=== PATIENT | female | born 1965 | race Two or more races ===

== ENCOUNTER 2024-01-19 10:01 | Outpatient (REF) | payer OTHER, SELFPAY | END 2024-01-19 10:02 | disposition home or self-care (01) | LOC: HO.HOSX 10:01 | DX: M79.641 Pain in right hand (principal) | CPT/HCPCS: 73110 ==

== ENCOUNTER 2024-01-19 14:04 | Outpatient (AMB) | payer OTHER, SELFPAY ==
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
== END 2024-01-19 14:45 | disposition home or self-care (01) ==
DX: M77.8 Other enthesopathies, not elsewhere classified (principal); M67.431 Ganglion, right wrist; R20.0 Anesthesia of skin; R20.2 Paresthesia of skin
CPT/HCPCS: 99203

== ENCOUNTER → 2024-01-19 14:07 | Outpatient (BNV) | payer OTHER, SELFPAY | PROVIDERS: Visit Provider Radiology Diagnostic Radiology | DX: M79.641 Pain in right hand (principal) | CPT/HCPCS: 73110 ==

== ENCOUNTER 2024-02-11 14:11 | Outpatient (REF) | payer OTHER, SELFPAY ==
--- NOTE | 2024-02-11 14:19 | EMG_ITS ---
Chief complaint: Right hand pain Reason for referral: Evaluate for Carpal Tunnel Syndrome Referred by: Ivan GLYNN Procedure done: Right upper extremity NCS/EMG Precautions and/or limitations: None The limb temperature was monitored continuously and remained between 32-36 degrees C during the performance of the NCS. Nerve Conduction Studies Anti Sensory Summary Table ?Stim Site NR Onset (ms) Norm Onset (ms) Peak (ms) Norm Peak (ms) O-P Amp (?V) Norm O-P Amp Site1 Site2 Delta-0 (ms) Dist (cm) Ck (m/s) Norm Ck (m/s) Right Median Anti Sensory (2nd Digit) Wrist ? 4.3 5.4 <3.6 12.2 >10 Wrist 2nd Digit 4.3 14.0 33 Right Radial Anti Sensory (Thumb) Forearm ? 1.5 1.8 <3.1 29.5 Forearm Thumb 1.5 0.0 Right Ulnar Anti Sensory (5th Digit) Wrist ? 2.0 2.5 <3.7 26.1 >15.0 Wrist 5th Digit 2.0 14.0 70 Motor Summary Table ?Stim Site NR Onset (ms) Norm Onset (ms) O-P Amp (mV) Norm O-P Amp iAmp (mV) Amp (1st) (%) Site1 Site2 Delta-0 (ms) Dist (cm) Ck (m/s) Norm Ck (m/s) Right Median Motor (Abd Poll Brev) Wrist ? 5.2 <3.9 4.8 >4.5 6.1 100.0 Elbow Wrist 3.0 19.0 63 >45 Elbow ? 8.2 4.5 5.9 93.8 Right Ulnar Motor (Abd Dig Minimi) Wrist ? 2.5 <3.0 6.7 >5 8.0 100.0 B Elbow Wrist 3.0 18.5 62 >45 B Elbow ? 5.5 5.9 7.3 88.1 A Elbow B Elbow 1.2 10.0 83 >45 A Elbow ? 6.7 5.9 7.3 88.1 EMG ?Side Muscle Nerve Root Ins Act Fibs Psw Amp Dur Poly Recrt Int Pat Comment Right 1stDorInt Ulnar C8-T1 Nml Nml Nml Nml Nml 0 Nml Complete Right FlexCarRad Median C6-7 Nml Nml Nml Nml Nml 0 Nml Complete Right Biceps Musculocut C5-6 Nml Nml Nml Nml Nml 0 Nml Complete Right Triceps Radial C6-7-8 Nml Nml Nml Nml Nml 0 Nml Complete Right Deltoid Axillary C5-6 Nml Nml Nml Nml Nml 0 Nml Complete FINDINGS: Right median motor nerve showed prolonged distal latency, normal amplitude and normal conduction velocity. Right median sensory nerve showed prolonged peak latency. All other nerves tested were within normal. Concentric needle EMG was performed in selected muscles of the right upper extremity. Study did not reveal signs of electric abnormalities as shown in the table above. IMPRESSION: 1. This is an abnormal study. 2. There is electrodiagnostic evidence for right moderate-severe median neuropathy at the wrist, consistent with carpal tunnel syndrome. 3. There is no electrodiagnostic evidence for ulnar neuropathy, brachial plexopathy, or cervical radiculopathy. Thank you for your kind referral. Regine Wick MD, ATA Board Certified, [place] [employer] and [employer] (ABPMR) Board Certified, [place] Board [employer] Electro[employer]ostic [employer] (ABEM) [place] [id number] [facility]
== END 2024-02-11 14:12 | disposition home or self-care (01) ==
LOC: HO.NEURO 14:11
DX: R20.0 Anesthesia of skin (principal); R20.2 Paresthesia of skin
CPT/HCPCS: 95886; 95909

== ENCOUNTER → 2024-02-11 14:19 | Outpatient (BNV) | payer OTHER, SELFPAY | PROVIDERS: Visit Provider Physical Medicine & Rehabilitation | DX: G56.01 Carpal tunnel syndrome, right upper limb (principal) | CPT/HCPCS: 95886; 95909 ==

== ENCOUNTER 2024-03-15 11:15 | Outpatient (AMB) | payer OTHER, SELFPAY ==
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
== END 2024-03-15 12:00 | disposition home or self-care (01) ==
PROVIDERS: Visit Provider Orthopaedic Surgery
DX: G56.01 Carpal tunnel syndrome, right upper limb (principal); M67.431 Ganglion, right wrist
CPT/HCPCS: 99214

== ENCOUNTER → 2024-03-15 11:15 | Outpatient (BNVA) | payer OTHER, SELFPAY | PROVIDERS: Visit Provider Orthopaedic Surgery | DX: G56.01 Carpal tunnel syndrome, right upper limb (principal); M67.431 Ganglion, right wrist | CPT/HCPCS: 99212 ==

== ENCOUNTER 2024-05-22 08:14 | Day surgery (SDC) | payer OTHER, SELFPAY ==
[2024-05-22 09:18] VITALS: BP 132/77; PULSE 99; RESP 15; TEMP 36.6; O2SAT 99; BMI 28.0
--- NOTE | 2024-05-22 10:40 | MHC.SHP ---
Pre-Procedural Eval Section A - 24 Hr Update-Section A only Date of Service: 05/22/24 The patient is an INPATIENT: No Changes since office visit: No Cold of Flu in the past 2 weeks, No New Medical Problems, No Changes in Medication and No Patient answered all questions The patient has been examined within 24 hours of the surgical procedure. The History & Physical has been completed within 30 days and I have reviewed it.: Yes Section B - Complete if H&P > 30 days Chief Complaint: Carpal tunnel syndrome, right upper limb Allergies: Allergies Allergy/AdvReac Type Severity Reaction Status Date / Time No Known Allergies Allergy Verified 01/19/24 14:16 Plan Diagnosis/Plan: Unchanged I have reviewed the history and physical and performed a pertinent physical examination on my patient. No changes have occurred unless specified. Time Spent With Patient Time: Total time managing care of this patient today ____ minutes.
--- NOTE | 2024-05-22 10:40 | W.PM.OPN ---
Operative Note Operative Note Date of Service: 05/22/24 Narrative: Preop diagnosis: 1. Right Carpal tunnel syndrome Postop diagnosis: same Procedure: 1. Right Carpal tunnel release Surgeon: Graciela Jones MD Consultative Sales Associate: None Anesthesia: local block using 1% lidocaine with epinephrine Findings: Thickened transverse carpal ligament. EBL: Less than 5 mL Specimens: None Complications: None Disposition: Brought to recovery room in stable condition Plan: Follow-up for 10-14 days for wound check and suture removal Indications: The patient is 59 years old, with right carpal tunnel syndrome that has been unresponsive to nonoperative management. The risks and benefits of operative treatment including but not limited to risk of damage to blood vessels, nerves, tendons, infection, persistent pain, persistent symptoms, or possible need for additional surgery were discussed with the patient and the patient wishes to proceed with surgery. Procedure: Once consent was obtained a local block was performed using a combination of 1% lidocaine with epinephrine. The patient was then brought back to the operating suite and placed on the operative table in supine position. The right upper extremity was prepped and draped in a standard surgical fashion. Once assured that we had a good block, a 2.0 cm longitudinal incision was made centered over the carpal tunnel. The incision was made through the skin to the subcutaneous tissues using a #15 blade. Dissection was made down to the level of the transverse carpal ligament with care being taken to protect the palmar cutaneous nerve. Once the transverse carpal ligament was clearly visualized, a longitudinal incision was made in the transverse carpal ligament 1st using a #15 blade, then using tenotomy scissors under direct visualization. Care was taken to look for and protect the motor branch of the median nerve when seen in this area. Once satisfied with our carpal tunnel release the wound was copiously irrigated with normal saline and hemostasis was obtained with a brief period of local pressure. The skin edges were reapproximated with some 5.0 nylon suture material and a sterile dressing was applied. The patient appears to have tolerated the procedure well and with no complications. All digits were well vascularized at the conclusion of the case.
[2024-05-22 11:18] VITALS: BP 114/66; PULSE 62; RESP 18; O2SAT 100
--- NOTE | 2024-05-22 11:41 | PC.NURSE ---
medical record clerk present during discharge instructions.
== END 2024-05-22 12:00 | disposition home or self-care (01) ==
PROVIDERS: Visit Provider Orthopaedic Surgery
PROC: (CPT 64721; principal; 2024-05-22 09:30)
DX: G56.01 Carpal tunnel syndrome, right upper limb (principal); R20.0 Anesthesia of skin; M25.531 Pain in right wrist; M67.431 Ganglion, right wrist; M79.601 Pain in right arm; Z87.828 Personal history of other (healed) physical injury and trauma
CPT/HCPCS: 64721; J0171; J2003; J2004

== ENCOUNTER → 2024-05-22 08:14 | Outpatient (BNV) | payer OTHER, SELFPAY | PROVIDERS: Visit Provider Orthopaedic Surgery | DX: G56.01 Carpal tunnel syndrome, right upper limb (principal) | CPT/HCPCS: 64721 ==

== ENCOUNTER 2024-06-07 10:16 | Outpatient (AMB) | payer OTHER, SELFPAY ==
[2024-06-07 10:22] VITALS: BMI 28.0
--- NOTE | 2024-06-07 10:22 | MHC.OFFVIS ---
Vital Signs 06/07/24 10:22 06/07/24 10:33 Height 5 ft 1 in 5 ft 1 in Weight 148 lb 148 lb BMI 28.0 28.0 Intake Visit Reasons: PO RT CTR 05/22/24 AR Intake Note: Jessie is a 59 year old right hand dominant female who presents today for her first post operative visit s/p Right Carpal Tunnel Release 05/22/24. Patient reports that she is doing well with no current concerns. Sutures removed and steri strips applied Occupational Therapist Assistant Required: Yes Occupational Therapist Assistant Services: Occupational Therapist Assistant Present Occupational Therapist Assistant Name: Yee BENNETT LM Allergies No Known Allergies Allergy (Verified 01/19/24 14:16) HPI HPI PO RT CTR 05/22/24 AR: Details: Jessie is a 59 year old right hand dominant female who presents today for her first post operative visit s/p Right Carpal Tunnel Release 05/22/24. Patient reports that she is doing well with no current concerns. Sutures removed and steri strips applied Review of Systems Const All systems reviewed & are unremarkable except as noted in HPI and below Physical Exam Vital Signs: BMI result Body Mass Index 28.0 Extrem Other: Patient is alert, oriented, and in no acute distress. Neuro: Normal sensation of the tips of all digits of the right hand at this time Vascular: Cap refill brisk Pain: No tenderness to palpation about the incision site on the volar right wrist Patient does report significant pain when making a closed fist ROM: With encouragement, patient was able to make a closed fist and extend all digits of the right hand fully Skin: No lacerations or abrasions. General: No ecchymosis, erythema, or evidence of infection. Psych: Appears grossly normal Affect normal Attitude cooperative Assessment & Plan Assessment & Plan (1) Carpal tunnel syndrome of right wrist: Code(s): G56.01 - Carpal tunnel syndrome, right upper limb Category: Medical Plan 1. Status post right carpal tunnel release DOS 05/22/2024 Patient appears to be recovering well postoperatively Patient was educated about the typical recovery course At this time, patient is educated that she will require no further acute follow-up with us, as she appears to be recovering very well However, the patient was quite stiff in the right hand, so she is referred to occupational therapy for range of motion and strengthening of the right hand Patient was amenable to this plan Patient will follow-up as needed with any acute concerns Orders: Orders OT Evaluation and Treatment Today G56.01 - Carpal tunnel syndrome, right upper limb Coding Level of Care Code Global (54032) Diagnoses Carpal tunnel syndrome of right wrist G56.01
[2024-06-07 10:33] VITALS: BMI 28.0
--- OUTSIDE RECORDS SUMMARY | 2024-06-07 11:47 | XMS_ITS | Encounter Summary ---
Author Organization [employer] Address [address] [place] [address] Care Team Providers Care Stockroom Worker Name Role Phone Unavailable Primary Care Provider Unavailabl e Reason for Visit * Reason Onset Date Comments insurance 08/16/2023 Encounter Details Date Type Department Care Team (Late Contact Info) Description 08/16/2023 Telephone [facility] [address] [place] [address] America Richards DDS [address], [place] [phone] insurance Social History Tobacco Use Types Packs/Day Years Used Date Smoking Tobacco: Never Assessed Comments Unknown Sex and Gender Information Value Date Recorded Sex Assigned at Choose not to disclose 8:44 AM EDT Legal Sex Female 11:08 AM EDT Gender Identity Choose not to disclose 8:44 AM EDT Sexual Orientation Choose not to disclose 2023 8:44 AM EDT documented as of this encounter Miscellaneous Notes * Telephone Encounter - Candy Justice - 08/16/2023 8:45 AM EDT Patient instructed to come early to register and receive assistance with insurance . Patient provided id number. MMIS not working and number not coming up in portal. Number provided [id number]. She understands that number not coming up in system. Tagged her as self pay DR documented in this encounter Plan of Treatment Upcoming Encounters Date Type Department Care Team (Late Contact Info) Description 07/21/2024 3:00 PM EDT Office Visit [facility] [address] [place] [address] Jolynn Whitt [address], [place] [phone] documented as of this encounter Visit Diagnoses Not on filedocumented in this encounter
--- OUTSIDE RECORDS SUMMARY | 2024-06-07 11:47 | XMS_ITS | Clinical Summary ---
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 Name Role Phone Unavailable Primary Care Provider Unavailabl e Allergies No known active allergies Medications No known medications Encounters Date Type Department Care Team Description 03/27/2024 Telephone [facility] [address] [place] [address] Jolynn Whitt from Last 3 Months Social History Tobacco Use Types Packs/Day Years Used Date Smoking Tobacco: Never Smokeless Tobacco: Never Tobacco Cessation:Counseling Given: Not Answered Alcohol Use Standard Drinks/Week Comments Never 0 (1 standard drink = 0.6 oz pur e alcohol) Comments Unknown Sex and Gender Information Value Date Recorded Sex Assigned at Choose not to disclose 8:44 AM EDT Legal Sex Female 11:08 AM EDT Gender Identity Choose not to disclose 8:44 AM EDT Sexual Orientation Choose not to disclose 2023 8:44 AM EDT Last Filed Vital Signs Vital Sign Reading Time Taken Comments Blood Pressure 102/60 12/07/2023 10:26 AM EDT Pulse - - Temperature - - Respiratory Rate - - Oxygen Saturation - - Inhaled Oxygen Concentration - - Weight - - Height - - Body Mass Index - - Plan of Treatment Upcoming Encounters Date Type Department Care Team (Late st Contact Info) Description 07/21/2024 3:00 PM EDT Office Visit [facility] [address] [place] [address] Jolynn Whitt [address] [place] [address] Health Maintenance Due Date Last Done Comments CT Colonography 1965 Colonoscopy 1965 Colorectal Cancer Screening 1965 Dental Prophylaxis 1965 Depression Screening 1965 FIT DNA/Cologuard 1965 FIT 1965 FOBT 1965 HIV Screening 1965 Lipid Panel 1965 SDOH Screening 1965 Sigmoidoscopy 1965 Alcohol/Substance Use Screening 1977 Hepatitis C Screening 1983 DTaP/Tdap/Td Vaccines (1 - Tdap) 1984 Hepatitis B Vaccines (1 of 3 - 19+ 3-dose series) 1984 Pap Smear 1986 Cervical Cancer Screening 1995 HPV/Cotest 1995 Mammogram 2005 Pneumococcal Vaccine: 50+ Years (1 of 1 - PCV) 2015 Zoster Vaccines (1 of 2) 2015 COVID-19 Vaccine (1 - 2023-2 5 season) 2023 Influenza Vaccine (#1) 2023 Dental Oral Exam 06/06/2024 12/07/2023 Tobacco Screening 12/06/2024 12/07/2023 Dental X-Ray: Bitewings 12/07/2024 12/07/19 24, 10/18/2023, 08/17/2023 Dental X-Ray: Full Mouth 12/07/2026 12/07/2023 RSV Patients and Patients Aged 60 years or older (1 - 1-dose 75+ series) 2040 HIB Vaccines Aged Out No longer eligi ble based on patient's age to complete this topic HPV Vaccines Aged Out No longer eligi ble based on patient's age to complete this topic Hepatitis A Vaccines Aged Out No long er eligible based on patient's age to complete this topic IPV Vaccines Aged Out No longer eligi ble based on patient's age to complete this topic Meningococcal Vaccine Aged Out No radhika antonella eligible based on patient's age to complete this topic RSV under 20 months Aged Out No longe r eligible based on patient's age to complete this topic Rotavirus Vaccines Aged Out No longer eligible based on patient's age to complete this topic Procedures Procedure Name Priority Date/Time Associated Diagnosis Comments INTRAORAL - COMPLETE SERIES OF RADIOGRAPHIC IMAGES Routine 12/07/2023 10:30 AM EDT COMPREHENSIVE ORAL EVALUATION - NEW OR ESTABLISHED PATIENT Routine 12/07/2023 10:30 AM EDT from Last 3 Months or Most Recently Relevant to Health Maintenance Insurance DENTAL - [facility] PARTIAL (MEDICAID)
--- OUTSIDE RECORDS SUMMARY | 2024-06-07 11:47 | XMS_ITS | Clinical Summary ---
Author Organization [facility] Address [address] [place] [address] Care Team Providers Care Associate Professor Of Biology Name Role Phone Unavailable Primary Care Provider Unavailabl e Source Comments PLEASE NOTE, if this patient is a minor, it may be UNLAWFUL to discuss sensitive information that is contained in these records (such as FAMILY PLANNING, MENTAL HEALTH or SUBSTANCE ABUSE) with the minor patient's parent or other person without the patient's specific authorization.[facility] Medications No known medications Active Problems No known active problems Social History Tobacco Use Types Packs/Day Years Used Date Smoking Tobacco: Never Smokeless Tobacco: Never Tobacco Cessation:Counseling Given: Yes Alcohol Use Standard Drinks/Week Comments Never 0 (1 standard drink = 0.6 oz pur e alcohol) Social Connections Answer Date Recorded Connectedness 0 12/26/2023 Financial Resource Strain Answer Date R ecorded Financial Resource Strain 0 2023 Stress Answer Date Recorded Stress 0 07/21/2023 Physical Activity Answer Date Recorded Physical Activity 0 07/21/2023 Food Insecurity Answer Date Recorded Food 0 12/23/2023 Transportation Needs Answer Date Record ed Transportation 0 07/21/2023 Housing Stability Answer Date Recorded Housing 0 07/21/2023 Safety and Environment Answer Date Estevan rded Safety 0 07/21/2023 Utilities Answer Date Recorded Utilities 0 07/21/2023 Employment Answer Date Recorded Stress 0 12/26/2023 Comments Unknown Sex and Gender Information Value Date Recorded Sex Assigned at Female 07/29/2023 11:27 AM PDT Legal Sex Female 8:33 AM PDT Gender Identity Female 07/29/2023 11:27 AM PDT Sexual Orientation Straight 07/29/2023 11 :27 AM PDT Last Filed Vital Signs Vital Sign Reading Time Taken Comments Blood Pressure 112/72 07/21/2023 4:18 PM EDT Pulse 66 07/21/2023 4:18 PM EDT Temperature 36.8 ??C (98.3 ??F) 07/21/2023 4:18 PM ED T Respiratory Rate 16 07/21/2023 4:18 PM EDT Oxygen Saturation 100% 07/21/2023 4:18 PM EDT Inhaled Oxygen Concentration - - Weight 67.6 kg (149 lb) 07/21/2023 4:18 PM EDT Height 157.5 cm (5' 2 ) 07/21/2023 4:18 PM EDT Body Mass Index 27.25 07/21/2023 4:18 PM EDT Plan of Treatment Health Maintenance Due Date Last Done Comments Diabetes Screening 1965 HPV Screening 1965 Hepatitis C Screening 1965 Lipid Screening 1965 Pap + HPV 1965 HIV Screening 1980 Imm-DTaP/Tdap/Td (1 - Tdap) 1984 Imm-Hepatitis B (1 of 3 - 19+ 3-dose series) 5 Cervical Cancer Screening 1986 Pap Smear 1986 Breast Cancer Screening (Mammogram) 2005 CT Colonography 2010 Colonoscopy 2010 Colorectal Cancer Screening 2010 FIT/gFOBT 2010 Fecal DNA 2010 Flexible Sigmoidoscopy 2010 Imm-Zoster, Recombinant (1 of 2) 2015 Glh-[id number]-92 ( season) 2023 Imm-Influenza (#1) 2023 Alcohol and Drug Screen 03/29/2024 Depression Annual Screen 03/29/2024 Hypertension Screening (#1) 07/20/2024 Tobacco Screening 07/20/2024 07/21/2023 Cervical Ablation/Cold-Knife Conization Discontinued Cervical Cryotherapy Discontinued Colposcopy Discontinued Endometrial Biopsy Discontinued Excision/Leep Discontinued HPV Genotyping Discontinued Vaginal Pap Discontinued Vulvoscopy Discontinued Insurance [place] MEDICAID HEALTH SAFETY NET
== END 2024-06-07 10:48 | disposition home or self-care (01) ==
LOC: HO.HOS 10:17
DX: G56.01 Carpal tunnel syndrome, right upper limb (principal)
CPT/HCPCS: 99024

== ENCOUNTER → 2024-06-07 10:16 | Outpatient (BNVA) | payer OTHER, SELFPAY | DX: Z48.811 Encounter for surgical aftercare following surgery on the nervous system (principal); Z98.890 Other specified postprocedural states | CPT/HCPCS: 99212 ==

== ENCOUNTER 2024-07-04 10:36 | Outpatient (AMB) | payer OTHER, SELFPAY ==
--- NOTE | 2024-07-04 10:52 | A.OFFVIS_ITS ---
Vital Signs 07/04/24 10:55 Height 5 ft 1 in Weight 148 lb BMI 28.0 Intake Visit Reasons: PO RT CTR 05/22/24 AR, re-eval due to pain Intake Note: Jessie is a 59 year old female who presents today for a post operative visit s/p RT CTR on 05/22/24. Patient reports that she continues to have wrist pain that has been getting worse with hand movement. She has intermittent swelling and pain in her whole arm in the mornings. No numbness or tingling. Fine Jewelry Sales Associate Required: Yes Fine Jewelry Sales Associate Services: Fine Jewelry Sales Associate Offered & Declined Compliance Engineer: Compliance Engineer Present Accompanied by: Son Allergies No Known Allergies Allergy (Verified 07/04/24 10:59) HPI HPI PO RT CTR 05/22/24 AR, re-eval due to pain: Details: Jessie is a 59 year old female who presents today for a post operative visit s/p RT CTR on 05/22/24. Patient reports that she continues to have wrist pain that has been getting worse with hand movement. She has intermittent swelling and pain in her whole arm in the mornings. No numbness or tingling. No other acute complaints or concerns at this time Review of Systems Const All systems reviewed & are unremarkable except as noted in HPI and below Physical Exam Vital Signs: BMI result Body Mass Index 28.0 Extrem Other: Patient is alert, oriented, and in no acute distress. Neuro: Normal sensation of the tips of all digits of the right hand at this time Vascular: Cap refill brisk Pain: No tenderness to palpation about the incision site on the volar right wrist Patient does report pain when making a closed fist ROM: With encouragement, patient was able to make a closed fist and extend all digits of the right hand fully Skin: No lacerations or abrasions. General: No ecchymosis, erythema, or evidence of infection. Psych: Appears grossly normal Affect normal Attitude cooperative Assessment & Plan Assessment & Plan (1) Carpal tunnel syndrome of right wrist: Code(s): G56.01 - Carpal tunnel syndrome, right upper limb Category: Medical Plan 1. Status post right carpal tunnel release DOS 05/22/2024 Patient appears to be recovering well postoperatively Patient was educated about the typical recovery course Patient was held out of work for 4 weeks At this time, patient is educated that she will require no further acute follow- up with us, as she appears to be recovering very well However, the patient was quite stiff in the right hand, so she is referred to occupational therapy for range of motion and strengthening of the right hand Patient was amenable to this plan Patient will follow-up as needed with any acute concerns Coding Level of Care Code Global (86516) Diagnoses Carpal tunnel syndrome of right wrist G56.01
[2024-07-04 10:55] VITALS: BMI 28.0
--- OUTSIDE RECORDS SUMMARY | 2024-07-04 12:41 | XMS_ITS | Clinical Summary ---
Author Organization [employer] Address [address] [place] [address] [address] [place] [address] Care Team Providers Care Pbx Supervisor Name Role Phone Unavailable Primary Care Provider Unavailabl e Allergies No known active allergies Medications No known medications Social History Tobacco Use Types Packs/Day Years [...] Description 07/21/2024 3:00 PM EDT Office Visit [facility] AD[facility] [address] [place] [address] Peri, Jolynn [address] [place] [address] Health Maintenance Due Date Last Done Comments [...] Vaccines (1 of 2) 2015 COVID-19 Vaccine ( - 2023-2 5 season) 2023 Influenza Vaccine [...]
--- OUTSIDE RECORDS SUMMARY | 2024-07-04 12:41 | XMS_ITS | Encounter Summary ---
Author Organization [employer] Address [address] [facility] [address] [place] [address] Care Team Providers Care Public Administration Professor Name Role Phone Unavailable Primary Care Provider Unavailabl e Reason for Visit * Reason Onset Date Comments insurance 08/16/2023 Encounter Details Date Type Department Care Team (Late Contact Info) Description 08/16/2023 Telephone [facility] ADULT DENTAL [address] [place] [address] America Richards DDS [address], [place] [phone] insurance Social History Tobacco Use Types Packs/Day [...] not coming up in portal. Number provided [phone]. She understands that number not coming up in system. 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
--- OUTSIDE RECORDS SUMMARY | 2024-07-04 12:41 | XMS_ITS | Clinical Summary ---
Author Organization [facility] Address [address] [place] [address] Care Team Providers Care Domestic Laundry Worker Name Role Phone Unavailable Primary Care [...] Health Maintenance Due Date Last Done Comments Anxiety Screening 1965 Diabetes Screening 1965 HPV Screening 1965 Hepatitis [...] 2010 Imm-Zoster, Recombinant (1 of 2) 2015 [id number] ( season) 2023 Imm-Influenza (#1) 2023 Alcohol and Drug Screen 03/29/2024 Depression Annual Screen 03/29/2024 Hypertension Screening (#1) 07/20/2024 Tobacco Screening 07/20/2024 07/21/2023 Cervical Ablation/Cold-Knife Conization Discontinued Cervical Cryotherapy Discontinued Colposcopy Discontinued Endometrial Biopsy Discontinued Excision/Leep Discontinued HPV Genotyping Discontinued Vaginal Pap Discontinued Vulvoscopy Discontinued Insurance [place] MEDICAID HEALTH SAFETY NET
== END 2024-07-04 11:09 | disposition home or self-care (01) ==
LOC: HO.HOS 10:36
DX: G56.01 Carpal tunnel syndrome, right upper limb (principal)
CPT/HCPCS: 99024

== ENCOUNTER 2024-08-01 11:05 | Outpatient (AMB) | payer OTHER, SELFPAY ==
[2024-08-01 11:10] VITALS: BMI 28.0
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
--- OUTSIDE RECORDS SUMMARY | 2024-08-01 12:54 | XMS_ITS | Clinical Summary ---
Author Organization [employer] Address [address] [place] [address] [address] [place] [address] Care Team Providers Care Hangersmith Name Role Phone Unavailable Primary Care Provider Unavailabl e Allergies No known active allergies Medications No known medications Active Problems Problem Noted Date Diagnosed Date Dental caries 07/21/2024 Encounters Date Type Department Care Team Description 07/21/2024 3:00 PM EDT Office Visit [facility] ADULT DENTAL [address] [place], [place] [phone] Jolynn Whitt Dental caries (Primary Dx); Dental plaque from Last 3 Months Social History Tobacco [...] Sign Reading Time Taken Comments Blood Pressure 126/78 07/21/2024 3:12 PM EDT Pulse - - Temperature - - Respiratory Rate - - Oxygen Saturation - - Inhaled Oxygen Concentration - - Weight - - Height - - Body Mass Index - - Plan of Treatment Upcoming Encounters Date Type Department Care Team (Late st Contact Info) Description 09/05/2024 3:00 PM EDT Office Visit [facility] ADULT DENTAL [address] [place], [place] [phone] Pietro Diane DDS [address] [place], [place] [phone] Health Maintenance Due Date Last Done Comments CT Colonography 1965 Colonoscopy 1965 Colorectal Cancer Screening 1965 Depression Screening 1965 FIT DNA/Cologuard 1965 [...] 5 season) 2023 Influenza Vaccine (#1) 2023 Tobacco Screening 12/06/2024 12/07/2023 Dental X-Ray: Bitewings 12/07/2024 12/07/19 24, 10/18/2023, 08/17/2023 Dental Oral Exam 01/21/2025 07/21/2024, 12/07/2023 Dental Prophylaxis 01/21/2025 07/21/2024 Dental X-Ray: Full Mouth 12/07/2026 12/07/2023 RSV [...] Procedure Name Priority Date/Time Associated Diagnosis Comments PERIODIC ORAL EVALUATION - ESTABLISHED PATIENT Routine 07/21/2024 3:00 PM EDT CASE PRESENTATION, DETAILED AND EXTENSIVE TREATMENT PLANNING Routine 07/21/2024 3:00 PM EDT Dental caries Dental plaque ORAL HYGIENE INSTRUCTIONS Routine 07/21/2024 3:00 PM EDT Dental caries Dental plaque PROPHYLAXIS - ADULT Routine 07/21/2024 3 :00 PM EDT Dental caries Dental plaque INTRAORAL - COMPLETE SERIES OF RADIOGRAPHIC IMAGES Routine 12/07/2023 10:30 AM EDT from Last 3 Months or Most Recently Relevant to Health Maintenance Insurance DENTAL - [facility] PARTIAL (MEDICAID)
--- OUTSIDE RECORDS SUMMARY | 2024-08-01 12:54 | XMS_ITS | Encounter Summary ---
Author Organization [employer] Address [address] [facility] [address] [place] [address] Care Team Providers Care Attractions Associate Name Role Phone Unavailable Primary Care Provider Unavailabl e Reason for Visit * Reason Onset Date Comments insurance 08/16/2023 Encounter Details Date Type Department Care Team (Late Contact Info) Description 08/16/2023 Telephone [facility] ADULT DENTAL [address] [place] [address] America Richards DDS [address] [place], [place] [phone] insurance Social History Tobacco Use Types Packs/Day [...] not coming up in portal. Number provided [phone]. She understands that number not coming up in system. 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
--- OUTSIDE RECORDS SUMMARY | 2024-08-01 12:54 | XMS_ITS | Clinical Summary ---
Author Organization [facility] Address [address] [place] [address] Care Team Providers Care Wildland Fire Operations Specialist Name Role Phone Unavailable Primary Care Provider [...] 2010 Imm-Zoster, Recombinant (1 of 2) 2015 [id number] ( season) 2023 Imm-Influenza (#1) 2023 Alcohol and Drug Screen 03/29/2024 Depression Annual Screen 03/29/2024 Hypertension Screening (#1) 07/20/2024 Tobacco Screening 07/28/2024 07/29/2023 Cervical Ablation/Cold-Knife Conization Discontinued Cervical Cryotherapy Discontinued Colposcopy Discontinued Endometrial Biopsy Discontinued Excision/Leep Discontinued HPV Genotyping Discontinued Vaginal Pap Discontinued Vulvoscopy Discontinued [place]AF[place] NET
== END 2024-08-01 12:28 | disposition home or self-care (01) ==
LOC: HO.HOS 11:06
PROVIDERS: Visit Provider Orthopaedic Surgery
DX: M67.431 Ganglion, right wrist (principal); M25.641 Stiffness of right hand, not elsewhere classified; M25.611 Stiffness of right shoulder, not elsewhere classified
CPT/HCPCS: 99024

== ENCOUNTER 2024-08-29 14:46 | Outpatient (AMB) | payer OTHER, SELFPAY ==
--- NOTE | 2024-08-29 14:56 | MHC.OFFVIS ---
Intake Visit Reasons: OV RT CTR 05/22/24 AR-ROM check Intake Note: Jessie is a 59 year old right hand dominant female who presents today for a follow up visit and range of motion check for the right hand status post right carpal tunnel release DOS: 05/22/[address] Graciela Jones. Patient reports she has been attending physical therapy and has been finding it helpful with her ROM. She expresses she still does not have full strength back in the right hand. Describes difficulty with closing bottles, washing dishes, and such activities. She is unable to make a full closed fist and when she attempts to she gets nerve pain that shoots up to her right shoulder. She is here today to discuss work status and the shooting nerve pain she is getting. 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 Patient reports she has been attending physical therapy and has been finding it helpful with her ROM. She expresses she still does not have full strength back in the right hand. Describes difficulty with closing bottles, washing dishes, and such activities. She is unable to make a full closed fist and when she attempts to she gets nerve pain that shoots up to her right shoulder. Patient states she would like to be evaluated for right shoulder pain. She is here today to discuss work status and the shooting nerve pain she is getting. [facility] Social History (Updated 08/29/24 @ 15:01 by ARIANE Sahu) Alcohol intake: never Patient Tobacco Use Status: Never used Tobacco Current occupation: right handed Review of Systems Const All systems reviewed & are unremarkable except as noted in HPI and below Physical Exam Const General: no acute distress and alert Orientation/consciousness: patient oriented x3 Neuro General: patient oriented x3 Extrem Other: Evaluation of Right Upper Extremity: The patient is alert, oriented, and in no acute distress Neuro: Median, Ulnar, Radial nerves motor and sensory intact and sensation is normal to the tips of all digits Vascular: Cap refill brisk ROM: Patient is able to actively make a closed fist with the right hand, and actively into full extension Passively I could bring her fingers into full flexion, down to touch her palm She was able to actively hold her fingers closed to her palm after working on exercises in clinic. Nerve Conduction Study: Right-side only IMPRESSION: 1. This is an abnormal study. 2. There is electrodiagnostic evidence for right moderate-severe median neuropathy at the wrist, consistent with carpal tunnel syndrome. 3. There is no electrodiagnostic evidence for ulnar neuropathy, brachial plexopathy, or cervical radiculopathy. Regine Wick MD, ATA 02/11/24 Psych Appearance: grossly normal Affect: normal affect Attitude: cooperative Assessment & Plan Assessment & Plan (1) Ganglion cyst of volar aspect of right wrist: Code(s): M67.431 - Ganglion, right wrist Category: Medical (2) Stiffness of right hand joint: Code(s): M25.641 - Stiffness of right hand, not elsewhere classified Category: Medical (3) Stiffness of right shoulder joint: Code(s): M25.611 - Stiffness of right shoulder, not elsewhere classified Category: Medical (4) Stiffness of right shoulder joint: Code(s): M25.611 - Stiffness of right shoulder, not elsewhere classified Category: Medical Plan Assessment & Plan: 1. Right hand stiffness I educated her about this condition She has managed to improve her ROM with OT hand therapy and at-home exercises I discussed activity modifications, she is to continue to work on ROM exercises, attend OT hand therapy, and use her hand for normal daily activities I expressed the importance of frequent ROM exercises at home, she will perform ROM exercises 20X daily. Can return to work with no restrictions at this time Follow-up as needed 2. Right carpal tunnel syndrome, S/P release DOS: 05/22/24 Pre-operative symptoms intermittent, but daily, worse at night Now with normal sensation 3. Right shoulder stiffness PT to work on ROM & normalizing function Patient book for evaluation for right shoulder pain with ma Coding Level of Care Code Global (17433) Diagnoses Ganglion cyst of volar aspect of right wrist M67.431 Stiffness of right hand joint M25.641 Stiffness of right shoulder joint M25.611
--- OUTSIDE RECORDS SUMMARY | 2024-08-29 16:29 | XMS_ITS | Clinical Summary ---
Author Organization [facility] Address [address] [place] [address] Care Team Providers Care Deputy Editor In Chief Name Role Phone Unavailable Primary Care Provider [...] Lipid Screening 1965 Pap + HPV 1965 Tobacco Screening 1965 HIV Screening 1980 Imm-DTaP/Tdap/Td (1 - Tdap) 1984 Imm-Hepatitis B (1 of 3 - 19+ 3-dose series) 5 Cervical Cancer Screening 1986 Pap Smear 1986 Breast Cancer Screening (Mammogram) 2005 CT Colonography 2010 Colonoscopy 2010 Colorectal Cancer Screening 2010 FIT/gFOBT 2010 Fecal DNA 2010 Flexible Sigmoidoscopy 2010 Imm-Zoster, Recombinant (1 of 2) 2015 Ffm-WRLFP-92 ( season) 2023 Imm-Influenza (#1) 2023 Alcohol and Drug Screen 03/29/2024 Depression Annual Screen 03/29/2024 Hypertension Screening (#1) 07/20/2024 Cervical Ablation/Cold-Knife Conization Discontinued Cervical Cryotherapy Discontinued Colposcopy Discontinued Endometrial Biopsy Discontinued Excision/Leep Discontinued HPV Genotyping Discontinued Vaginal Pap Discontinued Vulvoscopy Discontinued Insurance [place] MEDICAID HEALTH SAFETY NET
== END 2024-08-29 15:18 | disposition home or self-care (01) ==
LOC: HO.HOS 14:46
DX: M67.431 Ganglion, right wrist (principal); M25.641 Stiffness of right hand, not elsewhere classified; M25.611 Stiffness of right shoulder, not elsewhere classified
CPT/HCPCS: 99213

== ENCOUNTER → 2024-08-29 14:46 | Outpatient (BNVA) | payer OTHER, SELFPAY | DX: M67.431 Ganglion, right wrist (principal); M25.641 Stiffness of right hand, not elsewhere classified; M25.611 Stiffness of right shoulder, not elsewhere classified | CPT/HCPCS: 99212 ==

== ENCOUNTER 2024-09-07 15:00 | Outpatient (RCR) | payer OTHER, SELFPAY ==
--- NOTE | 2024-07-11 14:53 | MHC.OT.OEV ---
[address] [phone] F: [phone] Occupational Therapy Evaluation Patient Name: Jessie Bowden Diagnosis: (R)CTR Date of Onset: Date of Surgery: 05/22/24 Attending Provider: Ivan Hinton Prescribed Treatment: Follow Up Appointment: History of Current Condition: Patient is 59 y/o right hand dominate Yoruba speaking female with no significant PMHx who was referred to skilled OT for hand stiffness and pain s/p CTR 05/22/24. She reports 0/10 at rest and 8/10 during activity. Denies numbness/tingling. 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 She lives with her daughter, son-in-law and grandson. She reported difficulty with all work related tasks. She stated she only is using her (L)hand during tasks. She enjoys reading the Bible. 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 Reads the Bible Living Situation, Family and/or Social Support: Lives with family Current Level of Function and Occupation Self Care, Employment, Leisure: mod (A)ADLs/IADLs Sleep: She will feel pain in the morning after waking up Driving: Does not drive Vision: Balance: Pain Assessment Pain Score: 8 Pain Scale Used: Numeric (0 - 10) Pain Location and Description: 0/10 at rest 8/10 during movement Aggravating Factors: Alleviating Factors: Not using anything Skin and Soft Tissue Assessment Skin and Soft Tissue: Comments: No edema present scar intact, no sign/symptom of infection, firm Nerve assessment Ulnar Nerve: Median Nerve: Radial Nerve: Comments: Sensory Assessment Temperature: Light Touch: Proprioception: Vibration: Comments: Edema Assessment Upper Extremity: WNL Lower Extremity: Comments: Dexterity Assessment Dexterity: Right Impaired Comments: Special Tests Comments: AROM(PROM) Strength Cervical Cervical Flexion: Cervical Extension: Cervical Lateral Flexion: Cervical Rotation: Comments: Shoulder Flexion: Extension: Abduction: Internal Rotation: External Rotation: Comments: Flexion: Extension: Abduction: Internal Rotation: External Rotation: Comments: Elbow Flexion: Extension: Pronation: Supination: Comments: Flexion: Extension: Pronation: Supination: Comments: Wrist Flexion: 52/66* Extension: 36/49* Ulnar Deviation: 15 Radial Deviation: 17 Comments: Flexion: Extension: Ulnar Deviation: Radial Deviation: Comments: Thumb Thumb CMC Flexion: Thumb MCP Flexion: Thumb IP Flexion: Radial Abduction: Palmar Abduction: [place] ([place]ji 0-10): Comments: Digits Index MCP: 60 PIP: 52 DIP: 46 Long MCP: 58 PIP: 60 DIP: 34 Ring MCP: 68 PIP: 66 DIP: 18 Small MCP: 56 PIP: 48 DIP: 30 Comments: Gross Grasp: (R)0 (L)24lbs. Lateral Pinch: 0 Two-Point Pinch: 0 Three-Jaw Luis E: 1 Comments: Patient Education Primary Language: C Software Engineer Required: Yes Current Knowledge: Teaching Method: Verbal Education Needs Identified on Evaluation: ADL's Exercise Pain How did patient/family demonstrate learning? Patient demonstrates Patient verbalizes Barriers to Learning: None Readiness for Learning: Accepting Who was educated? Patient Comments: Plan of Care Assessment: Based on initial OT evaluation patient is 7 weeks s/p (R) CTR presenting with pain, impaired ROM, impaired strength, and impaired performance during self care tasks. Quick DASH score = 88.6% indicating patient's perceived impairment during self care tasks. Due to the documented impairments it is recommended that patient receive skilled OT in order for her to achiever her maximal potential during self care performance. Thank you for your referral. STG Duration: 2 weeks Short Term Goals: Patient will use (R) hand during functional activities to avoid guarding posture 2/3 x Patient will increase wrist extension by 10* Patient will increase stitching machine feeder or offbearer strength to 5lbs. Patient be (I) with scar mobilization techniques LTG Duration: 4 weeks Halfway Goals: Patient will be (I) with HEP Patient will decrease Quick DASH by 40% Patient will have wrist ROM WFLs Frequency and Duration: The patient will be seen 2x a week for 4 weeks Treatment Plan: Therapeutic Exercise Therapeutic Activity Home Exercise Program Splinting Patient Education Desensitization/Sensory Re-ed Edema Control ADL Training Ultrasound NMES Iontophoresis Paraffin Fluidotherapy MHP Cold Packs Joint Mobilization Soft Tissue Mobilization Kinesiotaping Other (see comments) skilled OT eval and treat Electronically Signed By: NAS Shrestha/Pedro, CLT Reviewed/agree with student documentation: Therapist: Please sign and return to therapist, Thank you for your referral.
--- NOTE | 2024-08-18 09:58 | MHC.OT.OP ---
[address] [phone] F: [phone] Occupational Therapy Progress Note Patient Name: Jessie Murrell Diagnosis: (R)CTR Date of Surgery: 05/22/24 Date of Evaluation: 07/10/24 Treatments to Date: 10 Cancellations to Date: No Shows to Date: Subjective: It's feeling better. Pain Score: 0 Pain Location: (R)wrist Objective Measures: Status: Progressing Assessment: At this time patient is progressing in skilled OT as evident by her decreased Quick DASH score of 43.2% and report of 0/10 pain. However patient continues to guar her hand as she reported she does not using her (R)hand during functional activities, her main barrier. OT will focus on strength and functional use of (R)UE during tasks. At this time continued OT intervention is recommended. 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 - GOAL NOT MET (0lbs.) Patient be (I) with scar mobilization techniques - GOAL MET Oracle Consultant Goals: Patient will be (I) with HEP- PROGRESSING Patient will decrease Quick DASH by 40% - GOAL MET Patient will have wrist ROM WFLs - PROGRESSING Frequency and Duration: The patient will be seen 2x a week for 4 weeks Treatment Plan: Therapeutic Exercise Therapeutic Activity Home Exercise Program Splinting Patient Education Edema Control ADL Training Ultrasound NMES Iontophoresis Paraffin Fluidotherapy MHP Cold Packs Joint Mobilization Soft Tissue Mobilization Kinesiotaping Other (see comments) skilled OT eval and treat Electronically Signed By: NAS Shrestha/Pedro CLT Reviewed/agree with student documentation: Therapist:
--- NOTE | 2024-09-08 11:18 | MHC.OT.DC ---
[address] [phone] F: [phone] Occupational Therapy Discharge Note Patient Name: Jessie Murrell Provider: Ivan Hinton Diagnosis: (R)CTR Date of Surgery: 05/22/24 Date of Evaluation: 07/10/24 Date of Discharge: Treatments to Date: 12 Cancellations to Date: No Shows to Date: Discharge Status: Improved Function Discharge Summary: Patient is d/c'd from skilled OT as she has achieved all of her goals but one. 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 Should patient require further OT intervention patient will contact [facility] Therapy. Thank you for your referral. Electronically Signed By: NAS Pope/Pedro, CLT Reviewed/agree with student documentation: Therapist: Please Sign and return to therapist, thank you for your referral.
== END 2024-09-08 11:19 | disposition home or self-care (01) ==
LOC: HO.OT 15:00
DX: G56.01 Carpal tunnel syndrome, right upper limb (principal)
CPT/HCPCS: 97035; 97110; 97140; 97165; 97535

== ENCOUNTER 2024-10-23 08:22 | Outpatient (REF) | payer OTHER, SELFPAY ==
--- NOTE | ~2024-10-23 | XR_ITS ---
EXAMINATION: XR SHOULDER, RIGHT CLINICAL INFORMATION: M25.511 - Pain in right shoulder COMPARISON: None available. TECHNIQUE: AP external rotation, Grashey, scapular Y, and axillary views of the right shoulder. FINDINGS: No acute cortical disruption or malalignment. No lytic or blastic lesions. No subcutaneous emphysema. No metallic or radiopaque foreign body. XR/XR shoulder RT min 2V IMPRESSION: No acute fracture or dislocation. Negative exam. Electronically signed by: Dayday Navas MD 10/23/2024 10:28 AM EDT
--- OUTSIDE RECORDS SUMMARY | 2024-10-23 08:33 | XMS_ITS | Clinical Summary ---
Author Organization [facility] Address [address] [place] [address] Care Team Providers Care Flight Readiness Technician Name Role Phone Unavailable Primary Care Provider [...] 66 07/21/2023 4:18 PM EDT Temperature 36.8 C (98.3 F) 07/21/2023 4:18 PM EDT Respiratory Rate 16 07/21/2023 4:18 PM EDT Oxygen Saturation 100% 07/21/2023 4:18 PM EDT Inhaled Oxygen Concentration - - Weight 67.6 kg (149 lb) 07/21/2023 4:18 PM EDT Height 157.5 cm (5' 2 ) 07/21/2023 4:18 PM EDT Body Mass Index 27.25 07/21/2023 4:18 PM EDT Plan of Treatment Not on file Insurance [place] MEDICAID HEALTH SAFETY NET
--- OUTSIDE RECORDS SUMMARY | 2024-10-23 08:33 | XMS_ITS | Clinical Summary ---
Author Organization [employer] Address [address] [place] [address] [address] [place] [address] Care Team Providers Care Consulting Group Analyst Name Role Phone Unavailable Primary Care Provider Unavailabl e Allergies No known active allergies Medications No known medications Active Problems Problem Noted Date Diagnosed Date Dental caries 07/21/2024 Encounters Date Type Department Care Team Description 09/05/2024 3:00 PM EDT Office Visit [facility] [address] [place], [place] [phone] Pietro Diane DDS Dental caries (Primary Dx) from Last 3 Months Social History Tobacco [...] Care Team (Late st Contact Info) Description 11/13/2024 2:30 PM EDT Office Visit [facility] [address] [place], [place] [phone] America Richards DDS [address] [place], [place] [phone] Health Maintenance Due Date Last Done Comments CT Colonography 1965 Colonoscopy 1965 Colorectal Cancer Screening 1965 Depression Screening 1965 FIT DNA/Cologuard 1965 FIT 1965 FOBT 1965 HIV Screening 1965 Lipid Panel 1965 SDOH Screening 1965 Sigmoidoscopy 1965 Disability Screening 1965 Alcohol/Substance Use Screening 1977 Hepatitis C [...] 2023-2 5 season) 2023 Influenza Vaccine (#1) 2024 Tobacco Screening 12/06/2024 12/07/2023 Dental X-Ray: Bitewings [...] patient's age to complete this topic Meningococcal B Vaccine Aged Out No l onger eligible based on patient's age to complete [...] Procedure Name Priority Date/Time Associated Diagnosis Comments NO CHARGE VISIT Routine 09/05/2024 3:00 PM EDT PROPHYLAXIS - ADULT Routine 07/21/2024 3 :00 PM EDT Dental caries Dental plaque PERIODIC ORAL EVALUATION - ESTABLISHED PATIENT Routine 07/21/2024 3:00 PM EDT INTRAORAL - COMPLETE SERIES OF RADIOGRAPHIC IMAGES Routine 12/07/2023 10:30 AM EDT from Last 3 Months or Most Recently Relevant to Health Maintenance Insurance DENTAL - [facility] PARTIAL (MEDICAID)
== END 2024-10-23 08:23 | disposition home or self-care (01) ==
LOC: HO.HOSX 08:22
DX: M24.811 Other specific joint derangements of right shoulder, not elsewhere classified (principal); M25.511 Pain in right shoulder
CPT/HCPCS: 73030; 99212

== ENCOUNTER 2024-10-23 10:17 | Outpatient (AMB) | payer OTHER, SELFPAY ==
[2024-10-23 10:29] VITALS: BMI 28.0
--- NOTE | 2024-10-23 10:29 | A.OFFVIS_ITS ---
Vital Signs 10/23/24 10:29 Height 5 ft 1 in Weight 148 lb BMI 28.0 Intake Visit Reasons: OV- Right shoulder/bicep pain, ROM check Intake Note: Jessie is a 59 year old right hand dominant female who presets today for a follow up of her right shoulder pain. Patient states she continues to have difficulty elevating her arm above the head and bringing to her back. She finds it difficult to carry certain heavy objects. She is not taking anything for pain at this time. Denies numbness and tingling. Bunch Breaker Required: Yes Bunch Breaker Language: Reducing Salon Attendant Services: Bunch Breaker Present Bunch Breaker Name: Yee RMA/LM Allergies No Known Allergies Allergy (Verified 10/23/24 10:29) HPI HPI OV- Right shoulder/bicep pain, ROM check: Details: Jessie is a 59 year old right hand dominant female who presets today for a follow up of her right shoulder pain. Patient states she continues to have difficulty elevating her arm above the head and bringing to her back. She finds it difficult to carry certain heavy objects. Patient states that this pain has been ongoing since right carpal tunnel release. She is not taking anything for pain at this time. Denies numbness and tingling. [facility] Social History (Updated 08/29/24 @ 15:01 by ARIANE Sahu) Alcohol intake: never Patient Tobacco Use Status: Never used Tobacco Current occupation: right handed Review of Systems Const All systems reviewed & are unremarkable except as noted in HPI and below Physical Exam Vital Signs: BMI result Body Mass Index 28.0 Extrem Other: Patient's right shoulder normal to inspection No erythema, ecchymosis, edema noted No lacerations, abrasions, open areas No evidence of infection Patient reports no tenderness to palpation of the right shoulder Patient is able to forward flex to approximately 120 degrees External rotation to approximately 30 degrees, this is bilateral 4/5 strength on empty can of the right, 5/5 in the left 5/5 strength on belly press bilaterally Unable to assess lift-off on the right Distal sensation intact Capillary refill brisk Results Reviewed Results Reviewed: X-rays obtained in the office today and independently reviewed by me, Ivan Hinton PA-C, demonstrate no fracture or acute bony abnormality of the right shoulder. Assessment & Plan Assessment & Plan (1) Internal derangement of right shoulder: Code(s): M24.811 - Other specific joint derangements of right shoulder, not elsewhere classified Category: Medical Plan 1. Internal derangement of right shoulder Patient is educated about this condition Patient is educated about the typical treatment course At this time, patient is referred to physical therapy for range of motion and strengthening of the right shoulder Patient is educated that I feel the most likely cause of her pain is a rotator cuff pathology, and then physical therapy is often the best place to start and can give patient significant relief Patient is educated that if PT is not helpful, she can call us 6 weeks after starting PT for discussion of further imaging or further treatment options Patient is amenable to this plan Follow-up as needed Orders: Orders XR shoulder RT min 2V Today M25.511 - Pain in right shoulder PT Evaluation and Treatment Today M24.811 - Other specific joint derangements of right shoulder, not elsewhere classified Coding Level of Care Code Est Pt Level 3 (67332) Diagnoses Internal derangement of right shoulder M24.811
== END 2024-10-23 11:00 | disposition home or self-care (01) ==
DX: M24.811 Other specific joint derangements of right shoulder, not elsewhere classified (principal)
CPT/HCPCS: 99213

== ENCOUNTER → 2024-10-23 10:20 | Outpatient (BNV) | payer OTHER, SELFPAY | PROVIDERS: Visit Provider Radiology Diagnostic Radiology | DX: M25.511 Pain in right shoulder (principal) | CPT/HCPCS: 73030 ==

== ENCOUNTER 2025-03-12 15:06 | Outpatient (AMB) | payer OTHER, SELFPAY ==
--- NOTE | 2025-03-12 15:23 | MHC.OFFVIS ---
Vital Signs 03/12/25 15:28 Height 5 ft 1 in Weight 148 lb BMI 28.0 Intake Visit Reasons: New prob/ rt hand MF locking Intake Note: Jessie is a 59 year old right hand dominant female who presets today for a new problem visit for right middle finger. States her finger is locking and is painful to pop back up in place. She also has a cyst on her radial aspect that has increase in size. States she has weakness in her hand and would like to discuss surgical intervention for both locking of finger and drainage of cyst. Allergies No Known Allergies Allergy (Verified 03/12/25 15:34) HPI HPI New prob/ rt hand MF locking: Details: Jessie is a 59 year old right hand dominant female who presets today for a new problem visit for right middle finger. States her finger is locking and is painful to pop back up in place. She also has a cyst on her radial aspect that has increase in size. States she has weakness in her hand and would like to discuss potential available treatment options for both locking of finger and drainage of cyst. Denies numbness or tingling in the right hand. No other acute complaints or concerns at this time. [facility] Social History (Updated 08/29/24 @ 15:01 by ARIANE Sahu) Alcohol intake: never Patient Tobacco Use Status: Never used Tobacco Current occupation: right handed Review of Systems Const All systems reviewed & are unremarkable except as noted in HPI and below Physical Exam Vital Signs: BMI result Body Mass Index 28.0 Extrem Other: Patient is alert, oriented, and in no acute distress. Neuro: Normal sensation of the tips of all digits of the right hand at this time Vascular: Cap refill brisk Pain: Tenderness to palpation of A1 emi of right middle finger No tenderness to palpation about volar wrist ganglion Pain with locking and catching of right middle finger ROM: There is visible and palpable locking and catching of the right middle finger in a flexed position Patient is able to flex and extend all digits of the right hand fully Skin: No lacerations or abrasions. General: There is a small, approximately 1 cm in diameter fluid filled mass noted on the volar aspect of the right wrist consistent with ganglion No ecchymosis, erythema, or evidence of infection. Psych: Appears grossly normal Affect normal Attitude cooperative Assessment & Plan Assessment & Plan (1) Ganglion, right wrist: Code(s): M67.431 - Ganglion, right wrist Category: Medical (2) Trigger finger, right middle finger: Code(s): M65.331 - Trigger finger, right middle finger Category: Medical Plan 1. Right middle finger trigger finger I educated the patient about the condition. I discussed both operative and nonoperative treatment options. The patient would like to proceed with surgery. The risks and benefits of operative treatment were discussed with the patient and the patient wishes to proceed with surgery. These risks include, but are not limited to, risk of damage to blood vessels, nerves, tendons, infection, recurrence, incomplete relief of preoperative symptoms, persistent pain, possible need for further surgery, and the risks associated with regional blocks and/or anesthesia. Plan is to take the patient to the operating room at some point in the next few weeks for the following procedures: 1. Right middle finger trigger release under local All of the preoperative paperwork including the consent was discussed today. All of the patient's questions were answered in the clinic today. The patient understands that they will be in contact with our migratory worker to discuss scheduling their procedure. Patient denies diabetes, blood thinners, asthma, heart issues, lung issues, kidney issues, or current smoking. 2. Right volar wrist ganglion cyst Patient is educated about this condition Patient is educated about the typical treatment course At this time, patient is educated that the only available treatment option for this, given the location of the cyst on the volar wrist Patient would like to hold off on surgery for now, as it would require general anesthesia Coding Level of Care Code Est Pt Level 4 (36472) Diagnoses Ganglion, right wrist M67.431 Trigger finger, right middle finger M65.331
[2025-03-12 15:28] VITALS: BMI 28.0
--- OUTSIDE RECORDS SUMMARY | 2025-03-12 21:41 | XMS_ITS | Encounter Summary ---
Author Organization [employer] Address [address] [place] [address] [place] [address] Care Team Providers Care Shift Superintendent Caustic Cresylate Name Role Phone Unavailable Primary Care Provider Unavailabl e Reason for Visit * Reason Onset Date Comments insurance 08/16/2023 Encounter Details Date Type Department Care Team (Late st Contact Info) Description 08/16/2023 Telephone [facility] [address] [place], [place] [phone] America Richards, DDS [address] [place], [place] [phone] insurance Social History Tobacco Use Types Packs/Day [...] not coming up in portal. Number provided [id number]. She understands that number not coming up in system. Tagged her as self pay documented in this encounter Plan of Treatment Not on file documented as of this encounter Visit Diagnoses Not on filedocumented in this encounter
--- OUTSIDE RECORDS SUMMARY | 2025-03-12 21:41 | XMS_ITS | Clinical Summary ---
Author Organization [email or web address] Address [address] [place] [address] [address] [place] [address] Care Team Providers Care Food Service Associate Name Role Phone Unavailable Primary Care Provider Unavailabl e Allergies No known active allergies Medications No known medications Active Problems Problem Noted Date Diagnosed Date Dental caries 07/21/2024 Social History Tobacco Use Types Packs/Day Years [...] Mass Index - - Plan of Treatment Health Maintenance Due Date [...] of 2) 2015 COVID-19 Vaccine (1 - 2024-2 6 season) 2024 Influenza Vaccine (#1) 2024 Tobacco Screening 12/06/2024 [...] Procedure Name Priority Date/Time Associated Diagnosis Comments PROPHYLAXIS - ADULT Routine 07/21/2024 3 :00 PM EDT Dental caries Dental plaque PERIODIC ORAL EVALUATION - ESTABLISHED PATIENT Routine 07/21/2024 3:00 PM EDT INTRAORAL - COMPLETE SERIES OF RADIOGRAPHIC IMAGES Routine 12/07/2023 10:30 AM EDT from Last 3 Months or Most Recently Relevant to Health Maintenance Insurance DENTAL - [facility] PARTIAL (MEDICAID)
== END 2025-03-12 16:15 | disposition home or self-care (01) ==
DX: M67.431 Ganglion, right wrist (principal); M65.331 Trigger finger, right middle finger
CPT/HCPCS: 99214

== ENCOUNTER → 2025-03-12 15:06 | Outpatient (BNVA) | payer OTHER, SELFPAY | DX: M67.431 Ganglion, right wrist (principal); M65.331 Trigger finger, right middle finger | CPT/HCPCS: 99212 ==